=== PATIENT | male | born 1970 | race Two or more races ===

== ENCOUNTER 2024-07-02 06:05 | Day surgery (SDC) | payer OTHER, SELFPAY ==
[2024-06-19 10:13] LABS: Hematocrit 48.6 % (39.0-52.0); Hemoglobin 16.3 g/dL (13.0-18.0); Mean Corp Hgb Conc. 33.5 g/dL (33.0-37.0); Mean Corpuscular Volume 89.5 fL (80.0-94.0); Mean Platelet Volume 9.8 fL (7.4-10.4); Platelet Count 286 10^3/uL (130-400); Red Blood Cell Count 5.43 10^6/uL (4.70-6.10); Red Cell Dist. Width 13.2 % (11.5-14.5); White Blood Cell Count 10.7 10^3/uL (4.8-10.8)
[2024-06-19 11:34] LABS: ALT (SGPT) 45 U/L (0-50); AST (SGOT) 33 U/L (17-59); Albumin 4.3 g/dl (3.5-5.0); Alkaline Phosphatase 57 U/L (38-126); Blood Urea Nitrogen 13 mg/dl (9-20); Calcium 9.3 mg/dl (8.4-10.2); Carbon Dioxide 32 mmol/L (22-30); Chloride 98 mmol/L (98-107); Glucose 89 mg/dl (70-99); Potassium 4.7 mmol/L (3.5-5.1); Sodium 139 mmol/L (135-145); Total Bilirubin 0.6 mg/dl (0.2-1.3); eGFR > 60.00
[2024-06-19 12:44] VITALS: BMI 44.3
[2024-06-24 10:34] VITALS: BMI 44.3
[2024-07-02] VITALS (9 sets, daily range): BP systolic 117–159; BP diastolic 73–90; PULSE 79; O2SAT 96
--- NOTE | 2024-07-02 07:40 | W.DS.TRANS ---
DC Summary - Radiology Ct Technologist
-
Discharge Instructions:
Discharge Diagnosis/Procedures C5-6 ACDF
Diet As tolerated
Activity No strenuous activity
Driving Restrictions No driving
Instructions:
Stand-Alone Forms: Lo Cervical D/C Inst.
Changes to Home Medications: Yes
Discharge Medications:
DC Medications w/original date entered in [employer]
citalopram 40 mg tablet 40 mg PO DAILY 06/24/24
Saccharomyces boulardii 250 mg capsule (Florastor) 250 mg PO BID #1 cap 07/02/24
acetaminophen 325 mg tablet (Tylenol) 650 mg (2 x 325 mg) PO QID #1 tab 07/02/24
cephalexin 500 mg capsule 500 mg PO QID infection prevention #20 caps 07/02/24
dexamethasone 4 mg tablet 4 mg PO BID inflammation #6 tabs 07/02/24
diazepam 2 mg tablet (Valium) 2 mg PO BID muscle pain/sleep #10 tabs 07/02/24
docusate sodium 100 mg capsule (Colace) 100 mg PO BID stool softner #1 cap 07/02/24
gabapentin 300 mg capsule 300 mg PO HS sleep/pain #10 caps 07/02/24
magnesium hydroxide 400 mg/5 mL oral suspension (Milk of Magnesia) 30 ml PO HS PRN Constipation #1 mL 07/02/24
ondansetron 4 mg disintegrating tablet 4 mg PO Q6H PRN n/v #20 tabs 07/02/24
oxycodone 5 mg tablet 5 mg PO Q6H PRN 1 tab moderate pain, 2 tabs severe pain #30 tabs 07/02/24
sennosides 8.6 mg tablet (Senokot) 17.2 mg (2 x 8.6 mg) PO BID laxative #2 tabs 07/02/24
Home Medication Changes
Saccharomyces boulardii 250 mg capsule (Florastor) 250 mg PO BID #1 cap 07/02/24
acetaminophen 325 mg tablet (Tylenol) 650 mg (2 x 325 mg) PO QID #1 tab 07/02/24
cephalexin 500 mg capsule 500 mg PO QID infection prevention #20 caps 07/02/24
dexamethasone 4 mg tablet 4 mg PO BID inflammation #6 tabs 07/02/24
diazepam 2 mg tablet (Valium) 2 mg PO BID muscle pain/sleep #10 tabs 07/02/24
docusate sodium 100 mg capsule (Colace) 100 mg PO BID stool softner #1 cap 07/02/24
gabapentin 300 mg capsule 300 mg PO HS sleep/pain #10 caps 07/02/24
magnesium hydroxide 400 mg/5 mL oral suspension (Milk of Magnesia) 30 ml PO HS PRN Constipation #1 mL 07/02/24
ondansetron 4 mg disintegrating tablet 4 mg PO Q6H PRN n/v #20 tabs 07/02/24
oxycodone 5 mg tablet 5 mg PO Q6H PRN 1 tab moderate pain, 2 tabs severe pain #30 tabs 07/02/24
sennosides 8.6 mg tablet (Senokot) 17.2 mg (2 x 8.6 mg) PO BID laxative #2 tabs 07/02/24
Pending Results: No
[2024-07-02] MEDS: LYRICA 150 MG PO (11:04)
[2024-07-02] MEDS: CELEBREX 200 MG PO (11:04)
[2024-07-02] MEDS: TYLENOL 1000 MG PO (11:04)
[2024-07-02] MEDS: SKELAXIN 800 MG PO ×3 (11:04→23:57)
[2024-07-02] MEDS: NORMOSOL-R/PLASMALYTE-A 1000 IV ×2 (11:30→16:28)
--- NOTE | 2024-07-02 15:31 | PTCARENOTE ---
Pt arrived to [facility] from PACU s/p C4-5 ACDF. Pt AAOx3, but drowsy. NV intact. Anterior neck dressing C/D/I, c-collar in place. Pt states no pain at this time. Oriented to call louise and room, bed locked and in lowest position, call louise within
reach.
[2024-07-02] MEDS: LYRICA PO (16:11)
[2024-07-02] MEDS: SENOKOT PO (16:11)
[2024-07-02] MEDS: SKELAXIN PO (16:11)
[2024-07-02] MEDS: COLACE PO (16:11)
[2024-07-02] MEDS: ULTRAM PO ×2 (16:11)
[2024-07-02] MEDS: CELEXA 40 MG PO (16:25)
[2024-07-02] MEDS: ULTRAM 50 MG PO ×3 (16:26→23:57)
[2024-07-02] MEDS: NORMOSOL-R/PLASMALYTE-A IV (16:45)
[2024-07-02] MEDS: COLACE 100 MG PO (20:18)
[2024-07-02] MEDS: SENOKOT 17.2 MG PO (20:18)
[2024-07-02] MEDS: LYRICA 75 MG PO (20:19)
[2024-07-02] MEDS: DECADRON 6 MG IV (20:23)
[2024-07-02] MEDS: ANCEF 5 IV (20:23)
[2024-07-03 02:58] VITALS: BP 123/68
[2024-07-03] MEDS: ULTRAM 50 MG PO ×2 (03:00→08:04)
[2024-07-03] MEDS: NORMOSOL-R/PLASMALYTE-A IV (04:39)
[2024-07-03] MEDS: ANCEF 5 IV (05:06)
[2024-07-03] MEDS: TYLENOL 1000 MG PO (05:06)
[2024-07-03 06:56] LABS: Hematocrit 44.9 % (39.0-52.0); Hemoglobin 15.3 g/dL (13.0-18.0)
[2024-07-03 07:24] LABS: Blood Urea Nitrogen 11 mg/dl (9-20); Carbon Dioxide 27 mmol/L (22-30); Chloride 100 mmol/L (98-107); Estimated Creatinine Clearance > 125 ml/min; Glucose 128 mg/dl (70-99); Potassium 4.4 mmol/L (3.5-5.1); Sodium 134 mmol/L (135-145); eGFR > 60.00
[2024-07-03 07:32] VITALS: BP 108/72
[2024-07-03] MEDS: CELEXA 40 MG PO (08:04)
[2024-07-03] MEDS: COLACE 100 MG PO (08:04)
[2024-07-03] MEDS: SENOKOT 17.2 MG PO (08:04)
[2024-07-03] MEDS: DECADRON 6 MG IV (08:04)
[2024-07-03 09:30] VITALS: BP 139/68; PULSE 85; O2SAT 97
--- NOTE | 2024-07-03 10:04 | CM ---
Reviewed the chart notes and spoke with the patient at the bedside. The patient is s/p C5-6 ACDF with instrumentation. The patient resides with significant other in a split level home with six steps to enter. The patient has a rolling walker,
cane, and CPAP machine. The patient reports no VN or SNF in the past. The patient confirmed his pharmacy of choice is the [facility] and PCP is Dr. Cal Calhoun. CM continues to be available to patient/family and is
monitoring medical plan for needs at discharge.
Plan: Discharge to home when medically stable.
[2024-07-03 10:24] VITALS: BP 126/75; PULSE 86; O2SAT 96
[2024-07-03 11:08] VITALS: BP 136/63
== END 2024-07-03 12:50 | disposition home or self-care (01) ==
LOC: SDS 06:05
PROVIDERS: Physician Assistant Medical; ATTENDING PHYSICIAN Orthopaedic Surgery Orthopaedic Surgery of the Spine; FAMILY PHYSICIAN Internal Medicine
PROC: 0RG10A0 Fusion of Cervical Vertebral Joint with Interbody Fusion Device, Anterior Approach, Anterior Column, Open Approach (ICD-10-PCS; 2024-07-02)
DX: M48.02 Spinal stenosis, cervical region (principal); G99.2 Myelopathy in diseases classified elsewhere
CPT/HCPCS: 22554; 22853; 36415; 72020; 80048; 80053; 85014; 85018; 85027; 86850; 86900; 86901; 87070; 93005; 97116; 97162; 97166; 97530; C1713